=== PATIENT | female | born 1950 | race Caucasian/White ===

== ENCOUNTER 2019-12-11 08:56 | Outpatient (REF) | payer MEDICARE, OTHER, SELFPAY ==
--- NOTE | 2019-12-11 | MM_ITS ---
EXAMINATION: BONE DENSITOMETRY CLINICAL INDICATION: Osteoporosis. COMPARISON: Previous BD dated 12/06/2017 and baseline BD dated 05/29/2007. TECHNIQUE: Using a Exosect DXA System (software version: 13.1) manufactured by [employer], dual-energy x-ray absorptiometry was performed of the lumbar spine and left hip. The images are of good technical quality. Summary results are attached. FINDINGS: AP SPINE L1-L4: Current: BMD 0.948 g/cm2, Z-score 0.3, T-score -1.9, osteopenia, 3.7% decrease from previous, 2.3% decrease from baseline (<5% change is not significant). Prior: BMD 0.984 g/cm2. Baseline: BMD 0.970 g/cm2. LEFT FEMUR, NECK: Current: BMD 0.683 g/cm2, Z-score -0.5, T-score -2.6, osteoporosis. Prior: BMD 0.674 g/cm2. Baseline: BMD 0.724 g/cm2. LEFT FEMUR, TOTAL: Current: BMD 0.728 g/cm2, Z-score -0.4, T-score -2.2, osteopenia, 2.0% decrease from previous, 9.9% decrease from baseline (<5% change is not significant). Prior: BMD 0.743 g/cm2. Baseline: BMD 0.808 g/cm2. IDENTIFIED RISK FACTORS: Early menopause, history of fracture (adult), secondary osteoporosis. HISTORY OF FRACTURE: Femur. No insufficiency fracture reported. MEDICATIONS: Calcium, vitamin D. IMPRESSION: 1. DIAGNOSIS: Osteoporosis based on the lowest T-score value of -2.6 in the femoral neck applying World Health Organization criteria. 2. 10-YEAR FRACTURE RISK PREDICTION, FRAX: Major osteoporotic fracture (clinical spine, forearm, hip or shoulder) 19.7%. Hip fracture 5.4%. 3. Treatment Recommendations: NOF guidelines recommend consideration for treatment in postmenopausal women and men age 50 and older presenting with the following: -A hip or vertebral (clinical or morphometric) fracture. -T-score less than or equal to -2.5 at the femoral neck or spine after appropriate evaluation to exclude secondary causes. -Low bone mass at the hip or spine and a 10-year fracture probability by FRAX of greater than or equal to 3% for hip fracture or greater than or equal to 20% for major osteoporotic fracture based on the [place] adapted WHO algorithm. 4. Other Recommendations: All treatment decisions require clinical judgment and consideration of individual patient factors, including patient preferences, comorbidities, previous drug use, risk factors not captured in the FRAX model (e.g. frailty, falls, vitamin D deficiency, increased bone turnover, interval significant decline in bone density) and possible under or overestimation of fracture risk by FRAX. Additional medical evaluation for secondary cause of low bone mineral density may be appropriate. FUTURE SCAN RECOMMENDATION: People with diagnosed cases of osteoporosis or at high risk for fracture should have regular bone mineral density tests. For patients eligible for Medicare, routine testing is allowed once every 2 years. The testing frequency can be increased to one year for patients who have rapidly progressing disease, those who are receiving or discontinuing medical therapy to restore bone mass, or have additional risk factors.
== END 2019-12-11 08:57 | disposition home or self-care (01) ==
LOC: HO.MAMMO 08:56
PROVIDERS: PCP Internal Medicine; Visit Provider Obstetrics & Gynecology
DX: M81.0 Age-related osteoporosis without current pathological fracture (principal); Z78.0 Asymptomatic menopausal state
CPT/HCPCS: 77080

== ENCOUNTER 2020-04-26 11:40 | Outpatient (REF) | payer MEDICARE, OTHER, SELFPAY ==
--- NOTE | ~2020-04-26 | MM_ITS ---
EXAMINATION: MM SCREENING DIGITAL BREAST TOMOSYNTHESIS, BILATERAL CLINICAL INFORMATION: Screening. Asymptomatic. The lifetime risk of breast cancer based on the Tyrer-Cuzick Model is 5%. COMPARISON: Mammography: 08/20/2019, 02/11/2018, 12/25/2016 TECHNIQUE: Digital breast tomosynthesis is performed in both the craniocaudal and mediolateral oblique views along with computer-aided detection (CAD). Synthesized 2D images are generated from the tomosynthesis. FINDINGS: There are scattered areas of fibroglandular density (ACR BI-RADS breast composition Category b). There are no significant masses, abnormal calcifications, or other abnormalities. There is some fine vascular calcifications posterior upper outer left breast. No significant changes. Skin contours are smooth. MM/MM tomosynthesis screening BI IMPRESSION: No mammographic evidence of malignancy. ASSESSMENT: BI-RADS 2: Benign RECOMMENDATION: Routine annual mammography screening. This patient's information was entered into a reminder system with a target due date for their next mammogram.
== END 2020-04-26 11:41 | disposition home or self-care (01) ==
LOC: HO.MAMMO 11:40
PROVIDERS: Visit Provider Internal Medicine
DX: Z12.31 Encounter for screening mammogram for malignant neoplasm of breast (principal)
CPT/HCPCS: 77063; 77067

== ENCOUNTER 2020-06-17 09:37 | Outpatient (REF) | payer MEDICARE, OTHER, SELFPAY ==
[2020-06-17 09:58] LABS: COVID-19 Test Negative (Negative); IDNOW Serial# 55D5AD1C
== END 2020-06-17 09:38 | disposition home or self-care (01) ==
LOC: HO.LAB 09:37
PROVIDERS: Visit Provider Internal Medicine
DX: Z20.822 Contact with and (suspected) exposure to COVID-19 (principal)
CPT/HCPCS: 36415; 87635; C9803

== ENCOUNTER 2020-09-21 09:50 | Outpatient (REF) | payer MEDICARE, OTHER, SELFPAY ==
[2020-09-21 10:38] LABS: MANUAL DIFF FLAG NO
[2020-09-21 10:41] LABS: Basophils Percent Auto 0.5 % (0-2); Eosinophils Absolute Auto 0.1 X10*3/uL (0.0-0.4); Eosinophils Percent Auto 1.2 % (0-4); Hematocrit 41.5 % (37-47); Hemoglobin 13.2 g/dl (12.0-16.0); Imm Gran Abs Auto 0.02 X10*3/uL (0.00-0.03); Imm Gran Pct Auto 0.3 % (0.0-0.4); Lymphocytes Percent Auto 16.6 % (20-40); Mean Corpuscular HGB Conc 31.8 g/dl (31.0-35.0); Mean Corpuscular Hemoglobin 30.6 pg (27.0-33.0); Mean Corpuscular Volume 96.1 fL (80-98); Mean Platelet Volume 9.7 fL (9.4-12.3); Monocytes Absolute Auto 0.4 X10*3/uL (0.1-1.2); Monocytes Percent Auto 6.1 % (2-11); Neutrophils Absolute Auto 4.4 X10*3/uL (2.0-8.3); Neutrophils Percent Auto 75.3 % (45-73); Platelet Count 253 X10*3/uL (160-400); Red Blood Count 4.32 X10*6/uL (4.20-5.50); Red Cell Distribution Width 13.2 % (11.0-16.0); White Blood Count 5.9 X10*3/uL (4.8-10.8)
[2020-09-21 10:58] LABS: Glucose Urine UA NEG (NEG); Leukocyte Esterase Urine 1+ (NEG); Nitrite Urine NEG (NEG); Specific Gravity - Urine 1.025 (1.005-1.025); Urine Blood TRACE (NEG); Urine Ketones NEG (NEG); Urine Protein NEG (NEG-TRACE)
[2020-09-21 11:01] LABS: Appearance Urine CLEAR; Color Urine YELLOW
[2020-09-21 11:04] LABS: Alanine Aminotransferase 13 U/L (0-31); Albumin Level 4.3 g/dL (3.5-5.0); Alkaline Phosphatase 50 U/L (39-117); Anion Gap 12 (12-20); Aspartate Amino Transferase 21 U/L (5-31); Bilirubin Total 0.9 mg/dL (0.0-1.0); Blood Urea Nitrogen 14 mg/dL (9-16); Calcium 9.3 mg/dL (8.4-10.2); Carbon Dioxide 29 mmol/L (22-29); Chloride 105 mmol/L (96-108); Estimated Glomerular Filt Rate > 60; Glucose Random 90 mg/dL (60-115); Sodium 142 mmol/L (135-145); Total Protein 6.3 g/dL (6.5-8.0)
[2020-09-21 11:18] LABS: Bacteria Urine TRACE /LPF; Mucus Urine 1+ /LPF; Squamous Epithelial Cell Urine 1+ /LPF
[2020-09-21 11:24] LABS: Thyroid Stimulating Hormone 2.03 uIU/mL (0.32-4.0)
== END 2020-09-21 09:51 | disposition home or self-care (01) ==
LOC: HO.LAB 09:50
PROVIDERS: PCP Internal Medicine; Visit Provider Internal Medicine
DX: R53.81 Other malaise (principal); R53.83 Other fatigue; R35.1 Nocturia
CPT/HCPCS: 36415; 80053; 81001; 81003; 84443; 85025

== ENCOUNTER 2020-11-30 15:41 | Outpatient (REF) | payer MEDICARE, OTHER, SELFPAY | END 2020-11-30 15:42 | disposition home or self-care (01) | LOC: HO.LAB 15:41 | PROVIDERS: Visit Provider Internal Medicine | DX: Z20.822 Contact with and (suspected) exposure to COVID-19 (principal) | CPT/HCPCS: C9803; U0003; U0005 ==

== ENCOUNTER 2021-01-13 09:44 | Outpatient (REF) | payer MEDICARE, OTHER, SELFPAY ==
[2021-01-13 10:28] LABS: COVID-19 Test Negative (Negative)
== END 2021-01-13 09:45 | disposition home or self-care (01) ==
LOC: HO.LAB 09:44
PROVIDERS: PCP Internal Medicine; Visit Provider Internal Medicine
DX: Z20.822 Contact with and (suspected) exposure to COVID-19 (principal)
CPT/HCPCS: 36415; 87635; C9803

== ENCOUNTER 2021-01-17 09:26 | Outpatient (REF) | payer MEDICARE, OTHER, SELFPAY | END 2021-01-17 09:27 | disposition home or self-care (01) | LOC: HO.LAB 09:26 | PROVIDERS: PCP Internal Medicine; Visit Provider Internal Medicine | DX: Z20.822 Contact with and (suspected) exposure to COVID-19 (principal) | CPT/HCPCS: C9803; U0003; U0005 ==

== ENCOUNTER 2021-06-14 09:47 | Outpatient (REF) | payer MEDICARE, OTHER, SELFPAY ==
--- NOTE | ~2021-06-14 | MM_ITS ---
EXAMINATION: MM SCREENING DIGITAL BREAST TOMOSYNTHESIS, BILATERAL CLINICAL INFORMATION: Screening. Asymptomatic. The lifetime risk of breast cancer based on the Tyrer-Cuzick Model is 5%. COMPARISON: Mammography: 04/26/2020, 04/21/2019, 02/11/2018 TECHNIQUE: Digital breast tomosynthesis is performed in both the craniocaudal and mediolateral oblique views along with computer-aided detection (CAD). Synthesized 2D images are generated from the tomosynthesis. FINDINGS: There are scattered areas of fibroglandular density (ACR BI-RADS breast composition Category b). There are no significant masses, abnormal calcifications, or other abnormalities. Parenchymal pattern is similar to prior exams. No significant changes. MM/MM tomosynthesis screening BI IMPRESSION: No mammographic evidence of malignancy. ASSESSMENT: BI-RADS 1: Negative RECOMMENDATION: Routine annual mammography screening. This patient's information was entered into a reminder system with a target due date for their next mammogram.
== END 2021-06-14 09:48 | disposition home or self-care (01) ==
LOC: HO.MAMMO 09:47
PROVIDERS: PCP Internal Medicine; Visit Provider Internal Medicine
DX: Z12.31 Encounter for screening mammogram for malignant neoplasm of breast (principal)
CPT/HCPCS: 77063; 77067

== ENCOUNTER 2022-01-10 09:23 | Outpatient (REF) | payer MEDICARE, OTHER, SELFPAY ==
--- NOTE | ~2022-01-10 | MM_ITS ---
EXAMINATION: BONE DENSITOMETRY CLINICAL INDICATION: Osteoporosis. COMPARISON: Previous BD dated 12/11/2019 and baseline BD dated 05/29/2007. TECHNIQUE: Using a [employer] DXA System (software version: 13.1) manufactured by [employer], dual-energy x-ray absorptiometry was performed of the lumbar spine and left hip. The images are of good technical quality. Summary results are attached. FINDINGS: AP SPINE L1-L4: Current: BMD 0.903 g/cm2, Z-score 0.0, T-score -2.3, osteopenia, 4.7% decrease from previous, 6.9% decrease from baseline (<5% change is not significant). Prior: BMD 0.948 g/cm2. Baseline: BMD 0.970 g/cm2. LEFT FEMUR, NECK: Current: BMD 0.657 g/cm2, Z-score -0.6, T-score -2.7, osteoporosis. Prior: BMD 0.683 g/cm2. Baseline: BMD 0.724 g/cm2. LEFT FEMUR, TOTAL: Current: BMD 0.697 g/cm2, Z-score -0.5, T-score -2.5, osteoporosis, 4.3% decrease from previous, 13.7% decrease from baseline (<5% change is not significant). Prior: BMD 0.728 g/cm2. Baseline: BMD 0.808 g/cm2. IDENTIFIED RISK FACTORS: Early menopause, history of fracture (adult), secondary osteoporosis. HISTORY OF FRACTURE: Femur. MEDICATIONS: Calcium, vitamin D. MM/XR DEXA axial skeleton IMPRESSION: 1. DIAGNOSIS: Severe osteoporosis based on the lowest T-score value of -2.7 in the femoral neck and history of fracture of femur applying World Health Organization criteria. 2. 10-YEAR FRACTURE RISK PREDICTION, FRAX: According to the guidelines, FRAX calculation should only be performed on patients in the osteopenia bone density category. Therefore, FRAX was not performed on this patient. 3. Treatment Recommendations: NOF guidelines recommend consideration for treatment in postmenopausal women and men age 50 and older presenting with the following: -A hip or vertebral (clinical or morphometric) fracture. -T-score less than or equal to -2.5 at the femoral neck or spine after appropriate evaluation to exclude secondary causes. -Low bone mass at the hip or spine and a 10-year fracture probability by FRAX of greater than or equal to 3% for hip fracture or greater than or equal to 20% for major osteoporotic fracture based on the [place] adapted WHO algorithm. 4. Other Recommendations: All treatment decisions require clinical judgment and consideration of individual patient factors, including patient preferences, comorbidities, previous drug use, risk factors not captured in the FRAX model (e.g. frailty, falls, vitamin D deficiency, increased bone turnover, interval significant decline in bone density) and possible under or overestimation of fracture risk by FRAX. Additional medical evaluation for secondary cause of low bone mineral density may be appropriate. FUTURE SCAN RECOMMENDATION: People with diagnosed cases of osteoporosis or at high risk for fracture should have regular bone mineral density tests. For patients eligible for Medicare, routine testing is allowed once every 2 years. The testing frequency can be increased to one year for patients who have rapidly progressing disease, those who are receiving or discontinuing medical therapy to restore bone mass, or have additional risk factors.
== END 2022-01-10 09:24 | disposition home or self-care (01) ==
LOC: HO.MAMMO 09:23
PROVIDERS: Visit Provider Internal Medicine Endocrinology, Diabetes & Metabolism
DX: Z13.820 Encounter for screening for osteoporosis (principal); M81.0 Age-related osteoporosis without current pathological fracture; Z78.0 Asymptomatic menopausal state
CPT/HCPCS: 77080

== ENCOUNTER 2022-02-03 08:20 | Outpatient (REF) | payer MEDICARE, OTHER, SELFPAY ==
[2022-02-03 12:10] LABS: Albumin Level 4.4 g/dL (3.5-5.0); Anion Gap 15 (12-20); Blood Urea Nitrogen 12 mg/dL (9-16); Calcium 9.8 mg/dL (8.4-10.2); Carbon Dioxide 28 mmol/L (22-29); Chloride 103 mmol/L (96-108); Estimated Glomerular Filt Rate > 60; Glucose Random 120 mg/dL (60-115); Potassium 4.5 mmol/L (3.3-5.1); Vitamin D 25-OH Total 49.2 ng/mL (>30)
[2022-02-03 12:26] LABS: Sodium 141 mmol/L (135-145)
[2022-02-05 15:39] LABS: Calcium (PTHI) 9.7 mg/dL (8.6-10.4); PTHI 53 pg/mL (16-77)
[2022-02-10 21:49] LABS: N-Telopeptide 57 (see note); NTXCreaRU 119 mg/dL (20-275)
== END 2022-02-03 08:21 | disposition home or self-care (01) ==
LOC: HO.10HDL 08:20
PROVIDERS: Visit Provider Internal Medicine Endocrinology, Diabetes & Metabolism
DX: M81.0 Age-related osteoporosis without current pathological fracture (principal)
CPT/HCPCS: 36415; 80048; 82040; 82306; 82523; 83970

== ENCOUNTER 2022-04-05 08:19 | Outpatient (REF) | payer MEDICARE, OTHER, SELFPAY ==
[2022-04-05 10:38] LABS: MANUAL DIFF FLAG NO
[2022-04-05 10:43] LABS: Basophils Absolute Auto 0.1 X10*3/uL (0.0-0.2); Basophils Percent Auto 1.7 % (0-2); Eosinophils Absolute Auto 0.2 X10*3/uL (0.0-0.4); Eosinophils Percent Auto 3.6 % (0-4); Hematocrit 42.6 % (37.0-47.0); Hemoglobin 13.7 g/dl (12.0-16.0); Lymphocytes Absolute Auto 1.3 X10*3/uL (1.2-4.9); Lymphocytes Percent Auto 27.9 % (20-40); Mean Corpuscular HGB Conc 32.2 g/dl (31.0-35.0); Mean Corpuscular Hemoglobin 30.3 pg (27.0-33.0); Mean Corpuscular Volume 94.2 fL (80.0-98.0); Mean Platelet Volume 10.2 fL (9.4-12.3); Monocytes Absolute Auto 0.4 X10*3/uL (0.1-1.2); Monocytes Percent Auto 7.6 % (2-11); Neutrophils Absolute Auto 2.8 x10*3/uL (2.0-8.3); Neutrophils Percent Auto 59.2 % (45-73); Platelet Count 270 X10*3/uL (160-400); Red Blood Count 4.52 X10*6/uL (4.20-5.50); Red Cell Distribution Width 13.1 % (11.0-16.0); White Blood Count 4.7 X10*3/uL (4.8-10.8)
[2022-04-05 11:23] LABS: Alanine Aminotransferase 13 U/L (0-31); Albumin Level 4.2 g/dL (3.5-5.0); Alkaline Phosphatase 65 U/L (39-117); Anion Gap 10 (12-20); Aspartate Amino Transferase 21 U/L (5-31); Bilirubin Total 0.6 mg/dL (0.0-1.0); Blood Urea Nitrogen 14 mg/dL (9-16); Calcium 9.2 mg/dL (8.4-10.2); Carbon Dioxide 31 mmol/L (22-29); Chloride 106 mmol/L (96-108); Cholesterol 224 mg/dL; Estimated Glomerular Filt Rate > 60; Glucose Fasting 78 mg/dL (60-99); HDL Cholesterol 76 mg/dL; LDL Cholesterol Calculated 140 mg/dl; Potassium 4.6 mmol/L (3.3-5.1); Sodium 142 mmol/L (135-145); Triglycerides 43 mg/dL
[2022-04-05 11:26] LABS: TSH reflex Free T4 1.64 uIU/mL (0.32-4.0)
== END 2022-04-05 08:20 | disposition home or self-care (01) ==
LOC: HO.10HDL 08:19
PROVIDERS: Absent Provider Internal Medicine Endocrinology, Diabetes & Metabolism; Visit Provider Internal Medicine
DX: E78.00 Pure hypercholesterolemia, unspecified (principal); M81.0 Age-related osteoporosis without current pathological fracture
CPT/HCPCS: 36415; 80053; 80061; 84443; 85025

== ENCOUNTER 2022-07-10 09:17 | Outpatient (REF) | payer MEDICARE, OTHER, SELFPAY ==
--- NOTE | ~2022-07-10 | MM_ITS ---
EXAMINATION: MM SCREENING DIGITAL BREAST TOMOSYNTHESIS, BILATERAL CLINICAL INFORMATION: Screening. Asymptomatic. The lifetime risk of breast cancer based on the Tyrer-Cuzick Model is 6%. COMPARISON: Mammography: 06/14/2021, 04/26/2020, 04/21/2019 TECHNIQUE: Digital breast tomosynthesis is performed in both the craniocaudal and mediolateral oblique views along with computer-aided detection (CAD). Synthesized 2D images are generated from the tomosynthesis. FINDINGS: There are scattered areas of fibroglandular density (ACR BI-RADS breast composition Category b). There are no significant masses, abnormal calcifications, or other abnormalities. Parenchymal pattern is similar to prior studies. There is no developing density or architectural abnormality. The axilla and skin contours are unremarkable. No significant changes. MM/MM tomosynthesis screening BI IMPRESSION: No mammographic evidence of malignancy. ASSESSMENT: BI-RADS 1: Negative RECOMMENDATION: Routine annual mammography screening. This patient's information was entered into a reminder system with a target due date for their next mammogram.
== END 2022-07-10 09:18 | disposition home or self-care (01) ==
LOC: HO.MAMMO 09:17
PROVIDERS: PCP Internal Medicine; Visit Provider Internal Medicine
DX: Z12.31 Encounter for screening mammogram for malignant neoplasm of breast (principal)
CPT/HCPCS: 77063; 77067

== ENCOUNTER 2022-12-20 06:33 | Day surgery (SDC) | payer MEDICARE, OTHER, SELFPAY ==
--- NOTE | 2022-12-18 14:56 | HO.ANESPROP2 ---
Documented by User: Asia Page NP 12/18/22 14:56 HPI - Anesthesia Eval Consult details Narrative: 72yo F for Colonoscopy PMFSH Past Medical History Medical History History of femur fracture Insomnia Surgical History Surgical History History of colonoscopy Social History Social History Patient Tobacco Use Status: Never used Tobacco Use of substances other than those prescribed or required for medical reasons: No Are you DNR?: No Advance Directives: No Advance Directives Information Provided: Yes Patient : No Meds Allergies Allergy/AdvReac Type Severity Reaction Status Date / Time No Known Allergies Allergy Verified 12/19/22 06:17 [No Known Allergies*] Home Medications Medication Instructions Recorded Confirmed Last Taken Type trazodone 100 mg tablet 100 mg PO BEDTIME 12/18/22 12/18/22 Unknown History Exam Exam Date and Time: December 18, [id number] Assessment and Plan Assessment Anesthesia Assessment: Chart Reviewed Documented by User: Shanell Suarez MD 12/20/22 07:34 PMFSH Past Medical History Medical History History of femur fracture Insomnia Family History Family history of problems with anesthesia: No Surgical History Surgical History History of colonoscopy History of Problems with Anesthesia: No Social History Social History Patient Tobacco Use Status: Never used Tobacco Use of substances other than those prescribed or required for medical reasons: No Are you DNR?: No Advance Directives: No Advance Directives Information Provided: Yes Patient : No Meds Allergies Allergy/AdvReac Type Severity Reaction Status Date / Time No Known Allergies Allergy Verified 12/19/22 06:17 [No Known Allergies*] Home Medications Medication Instructions Recorded Confirmed Last Taken Type trazodone 100 mg tablet 100 mg PO BEDTIME 12/18/22 12/18/22 Unknown History Exam Height,Weight and Vital Signs: Height 5 ft 2 in Weight 46.266 kg Vital Signs Temp Pulse Resp BP Pulse Ox O2 Del Method 12/20/22 06:53 96.4 F L 92 18 112/69 99 Room Air Airway Mallampati Class: III (Small mouth opening) TM Dist: >3cm Neck ROM: Full Loose/Missing/Broken Teeth: No (Denies broken, loose, missing teeth) Heart: RRR Lungs: CTAB Assessment and Plan Assessment Anesthesia Assessment: Anesthesia Plan Discussed Final Anesthetic Review Family History of Problems with Anesthesia: No History of Problems with Anesthesia: No NPO: Yes Final Preanesthetic Review: No Changes in Pt Med Stat, Meds/Allgs Chart Reviewed, Consent Obtained/Reviewed and Anes Risks/Benef Reviewed Patient Risk: Low Procedure Risk: Low Assessment/Block/Sedation in SS: Assess/Block/Sedation-SS Anesthetic Plan Anesthetic Plan: MAC: Disposition: Standard PACU
[2022-12-20 06:43] VITALS: BMI 18.7
[2022-12-20 06:47] VITALS: BMI 18.7
[2022-12-20 06:53] VITALS: BP 112/69; PULSE 92; RESP 18; TEMP 35.8; O2SAT 99
[2022-12-20] MEDS: Lactated Ringers 1,000 ML 100 ML IVCONT (07:03)
--- NOTE | 2022-12-20 08:31 | P.BOP_ITS ---
Brief Operative Note Date of Service: 12/20/22 Pre-op diagnosis: Screening Post-op diagnosis: other (Diverticulosis) Procedure: Colonoscopy to the cecum and TI Surgeon: Shaq Morrison MD Anesthesia: MAC Was an Human Resources Office Assistant used for this Procedure?: No Estimated blood loss (mL): 0 Pathology: none sent Condition: stable Disposition: PACU
[2022-12-20 08:34] VITALS: BP 103/52; PULSE 75; RESP 14; TEMP 36.5; O2SAT 99
--- NOTE | 2022-12-20 08:41 | OP_ITS ---
DATE OF SERVICE: 12/20/2022 SURGEON: Shaq Morrison MD INDICATIONS: The patient presents for evaluation of colorectal cancer screening and family history of colon cancer. Full consent was obtained from her for this, including risks of bleeding and perforation. PREOPERATIVE DIAGNOSIS: Colorectal cancer screening. POSTOPERATIVE DIAGNOSIS: PROCEDURE PERFORMED: Colonoscopy to the cecum and terminal ileum. ESTIMATED BLOOD LOSS: COMPLICATIONS: ANESTHESIA: Monitored anesthesia care. ASSISTANTS: SPECIMENS: POSTOPERATIVE DIAGNOSES: Colorectal cancer screening, diverticulosis and internal hemorrhoids. DESCRIPTION OF PROCEDURE: The patient was placed in left decubitus position. The digital rectal exam revealed no abnormalities. The Olympus video pediatric colonoscope was entered into the rectum and advanced easily to the cecum. Once in the cecum, I did identify normal-appearing cecal pouch with appendiceal orifice and a normal-appearing ileocecal valve. The terminal ileum was cannulated and appeared normal. The scope was withdrawn back in the colon. The entire cecum and ileocecal valve appeared normal. The scope was slowly withdrawn assessing all mucosal surfaces carefully. Preparation was excellent. I did not visualize any sign of polyps, colitis, nor angiodysplasia. There was a moderate amount of sigmoid diverticulosis. In the rectum, scope was retroflexed visualizing internal hemorrhoids, but no other pathology. The rectal mucosa appeared normal. The scope was straightened and withdrawn from the patient. She tolerated the procedure well and was returned to recovery area in stable condition. IMPRESSION: 1. Diverticulosis. 2. Internal hemorrhoids. PLAN: Given that this has been her 3rd negative colonoscopy and she is 72 years old, and her family history is only that of her mother having a colon cancer in her 80s, I do not think she will need any further screening colonoscopies. She will see me again on a p.r.n. basis. MD VICTORIANO Pinon/PAIGE / [phone]
[2022-12-20 08:49] VITALS: BP 115/46; PULSE 68; RESP 16; TEMP 36.6; O2SAT 99
== END 2022-12-20 09:22 | disposition home or self-care (01) ==
PROVIDERS: PCP Internal Medicine; Visit Provider Internal Medicine
PROC: 0DJD8ZZ Inspection of Lower Intestinal Tract, Via Natural or Artificial Opening Endoscopic (ICD-10-PCS; CPT 45378; principal; 2022-12-20 07:30)
DX: Z12.11 Encounter for screening for malignant neoplasm of colon (principal); Z83.710 Family history of adenomatous and serrated polyps; Z80.0 Family history of malignant neoplasm of digestive organs; K57.30 Diverticulosis of large intestine without perforation or abscess without bleeding; K64.8 Other hemorrhoids; Z79.899 Other long term (current) drug therapy; Z98.890 Other specified postprocedural states
CPT/HCPCS: G0105

== ENCOUNTER 2023-07-16 09:06 | Outpatient (REF) | payer MEDICARE, OTHER, SELFPAY | END 2023-07-16 09:07 | disposition home or self-care (01) | LOC: HO.MAMMO 09:06 | PROVIDERS: PCP Internal Medicine; Visit Provider Internal Medicine | DX: Z12.31 Encounter for screening mammogram for malignant neoplasm of breast (principal) | CPT/HCPCS: 77063; 77067 ==

== ENCOUNTER → 2023-07-16 09:15 | Outpatient (BNV) | payer MEDICARE, OTHER, SELFPAY | PROVIDERS: PCP Internal Medicine; Visit Provider Radiology Diagnostic Radiology | DX: Z12.31 Encounter for screening mammogram for malignant neoplasm of breast (principal) | CPT/HCPCS: 77063; 77067 ==

== ENCOUNTER 2023-09-11 08:05 | Outpatient (REF) | payer MEDICARE, OTHER, SELFPAY ==
[2023-09-11 08:23] LABS: MANUAL DIFF FLAG NO
[2023-09-11 08:54] LABS: Basophils Absolute Auto 0.1 X10*3/uL (0.0-0.2); Basophils Percent Auto 1.2 % (0-2); Eosinophils Absolute Auto 0.1 X10*3/uL (0.0-0.4); Eosinophils Percent Auto 2.3 % (0-4); Hematocrit 41.7 % (37.0-47.0); Hemoglobin 13.7 g/dl (12.0-16.0); Imm Gran Abs Auto 0.01 X10*3/uL (0.00-0.03); Imm Gran Pct Auto 0.2 % (0.0-0.4); Lymphocytes Absolute Auto 1.4 X10*3/uL (1.2-4.9); Lymphocytes Percent Auto 28.9 % (20-40); Mean Corpuscular HGB Conc 32.9 g/dl (31.0-35.0); Mean Corpuscular Hemoglobin 30.6 pg (27.0-33.0); Mean Corpuscular Volume 93.3 fL (80.0-98.0); Mean Platelet Volume 9.8 fL (9.4-12.3); Monocytes Absolute Auto 0.3 X10*3/uL (0.1-1.2); Monocytes Percent Auto 6.6 % (2-11); Neutrophils Percent Auto 60.8 % (45-73); Platelet Count 238 X10*3/uL (160-400); Red Blood Count 4.47 X10*6/uL (4.20-5.50); Red Cell Distribution Width 13.3 % (11.0-16.0); White Blood Count 4.9 X10*3/uL (4.8-10.8)
[2023-09-11 09:51] LABS: Alanine Aminotransferase 13 U/L (0-31); Albumin Level 4.2 g/dL (3.5-5.0); Alkaline Phosphatase 58 U/L (39-117); Anion Gap 10 (12-20); Aspartate Amino Transferase 22 U/L (5-31); Bilirubin Total 0.5 mg/dL (0.0-1.0); Blood Urea Nitrogen 12 mg/dL (9-16); Calcium 9.3 mg/dL (8.4-10.2); Carbon Dioxide 30 mmol/L (22-29); Chloride 107 mmol/L (96-108); Cholesterol 229 mg/dL (<200); Estimated Glomerular Filt Rate > 60; Glucose Random 93 mg/dL (60-115); HDL Cholesterol 76 mg/dL (>40); LDL Cholesterol Calculated 142 mg/dL (<100); Potassium 4.1 mmol/L (3.3-5.1); Sodium 143 mmol/L (135-145); Total Protein 6.3 g/dL (6.5-8.0); Triglycerides 57 mg/dL (<150)
[2023-09-11 10:08] LABS: TSH reflex Free T4 1.12 uIU/mL (0.32-4.0); Vitamin D 25-OH Total 34.7 ng/mL (>30)
== END 2023-09-11 08:06 | disposition home or self-care (01) ==
LOC: HO.LAB 08:05
PROVIDERS: PCP Internal Medicine; Visit Provider Internal Medicine
DX: Z00.00 Encounter for general adult medical examination without abnormal findings (principal); M81.0 Age-related osteoporosis without current pathological fracture; E78.00 Pure hypercholesterolemia, unspecified
CPT/HCPCS: 36415; 80053; 80061; 82306; 84443; 85025

== ENCOUNTER 2024-01-16 13:42 | Outpatient (REF) | payer MEDICARE, OTHER, SELFPAY ==
--- NOTE | ~2024-01-16 | MM_ITS ---
EXAMINATION: BONE DENSITOMETRY CLINICAL INDICATION: Age-related osteoporosis. COMPARISON: Previous BD dated 01/10/2022 and baseline BD dated 05/29/2007. TECHNIQUE: Using a [employer] DXA System (software version: 13.1) manufactured by [employer], dual-energy x-ray absorptiometry was performed of the lumbar spine and left hip. The images are of good technical quality. Summary results are attached. FINDINGS: LEFT FEMUR, NECK: Current: BMD 0.691 g/cm2, Z-score -0.3, T-score -2.5, osteoporosis. Prior: BMD 0.657 g/cm2. Baseline: BMD 0.724 g/cm2. LEFT FEMUR, TOTAL: Current: BMD 0.704 g/cm2, Z-score -0.4, T-score -2.4, osteopenia, 1.0% increase from previous, 12.9% decrease from baseline (<5% change is not significant). Prior: BMD 0.697 g/cm2. Baseline: BMD 0.808 g/cm2. AP SPINE L1-L4: Current: BMD 0.901 g/cm2, Z-score 0.0, T-score -2.3, osteopenia, 0.2% decrease from previous, 7.1% decrease from baseline (<5% change is not significant). Prior: BMD 0.903 g/cm2. Baseline: BMD 0.970 g/cm2. IDENTIFIED RISK FACTORS: Early menopause, secondary osteoporosis, history of fracture (adult). HISTORY OF FRACTURE: Femur. MEDICATIONS: Calcium supplements or multivitamin, vitamin D. MM/XR DEXA axial skeleton IMPRESSION: 1. DIAGNOSIS: Osteoporosis based on the lowest T-score value of -2.5 in the femoral neck applying World Health Organization criteria. 2. 10-YEAR FRACTURE RISK PREDICTION, FRAX: According to the guidelines, FRAX calculation should only be performed on patients in the osteopenia bone density category. Therefore, FRAX was not performed on this patient. 3. Treatment Recommendations: NOF guidelines recommend consideration for treatment in postmenopausal women and men age 50 and older presenting with the following: -A hip or vertebral (clinical or morphometric) fracture. -T-score less than or equal to -2.5 at the femoral neck or spine after appropriate evaluation to exclude secondary causes. -Low bone mass at the hip or spine and a 10-year fracture probability by FRAX of greater than or equal to 3% for hip fracture or greater than or equal to 20% for major osteoporotic fracture based on the [place] adapted WHO algorithm. 4. Other Recommendations: All treatment decisions require clinical judgment and consideration of individual patient factors, including patient preferences, comorbidities, previous drug use, risk factors not captured in the FRAX model (e.g. frailty, falls, vitamin D deficiency, increased bone turnover, interval significant decline in bone density) and possible under or overestimation of fracture risk by FRAX. Additional medical evaluation for secondary cause of low bone mineral density may be appropriate. FUTURE SCAN RECOMMENDATION: People with diagnosed cases of osteoporosis or at high risk for fracture should have regular bone mineral density tests. For patients eligible for Medicare, routine testing is allowed once every 2 years. The testing frequency can be increased to one year for patients who have rapidly progressing disease, those who are receiving or discontinuing medical therapy to restore bone mass, or have additional risk factors. Electronically signed by: Kimberli Machado MD 01/17/2024 01:40 PM LEXI ZIEGLER
== END 2024-01-16 13:43 | disposition home or self-care (01) ==
LOC: HO.MAMMO 13:42
PROVIDERS: PCP Internal Medicine; Visit Provider Internal Medicine
DX: M81.0 Age-related osteoporosis without current pathological fracture (principal)
CPT/HCPCS: 77080

== ENCOUNTER 2024-07-21 09:31 | Outpatient (REF) | payer MEDICARE, OTHER, SELFPAY ==
--- OUTSIDE RECORDS SUMMARY | 2024-07-21 09:50 | XMS_ITS | Patient Health Record ---
Author Organization [facility] Address [address] [place] [address] Care Team Providers Care Director Of Assessment Name Role Phone Kofi Blake MD Primary Care Provider Shaq Carl Unavailable [phone] Allergies No Known Allergies Reason For Referral No Information Medications Medication SIG (Take, Route, Fr equency, Duration) Notes Start Date End Date Status traZODone HCl 100 MG TAKE 1 TABLET (100 MG TOTAL) BY MOUTH NIGHTLY. AT BEDTIME. Oral for 30 Active Immunizations Vaccine Route Administration Date Status Comme nts Influenza Unknown 09/27/2022 Refused Social History Tobacco Use: Social History Observation Description Date Details (start date - stop date) Former Smoker NA - NA Tobacco Use/Smoking Question Answer Notes Patient is a former smoker How long has it been since you last smoked? > 10 years Alcohol Screen Question Answer Notes Did you have a drink contain ing alcohol in the past year? Yes How often did you have a dri nk containing alcohol in the past year? 4 or more times a week (4 points) How many drinks did you have on a typical day when you were drinking in the past year? 1 or 2 drinks (0 point) Points 4 Interpretation Positive Section Notes: Former smoker over 47 years ago; wine at dinner Former smoker over 47 years ago; wine at dinner Problems Problem Type SNOMED Code ICD Code Onset Dates Problem Status W/U Status Risk Notes Problem 356674908 Encounter for screening for malignant neoplasm of colon (Z12.11) Active confirmed Problem Diverticulosis o f large intestine without perforation or abscess without bleeding (K57.30) Active confirmed Problem 784023265 Family history o f colonic polyps (Z83.71) Active confirmed Problem 226491799 Preprocedural examination (Z01.818) Active confirmed Problem 689890572 Family history o f colon cancer (Z80.0) Active confirmed Problem 954602348 Screening for co alberto cancer (Z12.11) Active confirmed Plan Of Treatment Future Test Test Name Order Date COLONOSCOPY 06/19/2017 COLONOSCOPY 09/27/2022 Insurance Providers Payer Name Payer Address Payer Phone Subscriber Number Group Number Insured Name Patient Relationship to Insured Coverage Start Date Coverage End Date MEDICARE OF [place] [address] [place] [address] [id number] KARMEN GUSTAFSON Self - patient is the insured [facility] [address] [place] [address] [id number] KARMEN GUSTAFSON Self - patient is the insured Medical (General) History Medical History History ICD Code Denies NM,DM,CVA,Lung disease,renal dise ase Negative colonoscopy in 03/2007 and 8 Surgical History Surgery Date(Month/Year) Fractured femur surgery-- right
== END 2024-07-21 09:32 | disposition home or self-care (01) ==
LOC: HO.MAMMO 09:31
PROVIDERS: Visit Provider Internal Medicine
DX: Z12.31 Encounter for screening mammogram for malignant neoplasm of breast (principal)
CPT/HCPCS: 77063; 77067

== ENCOUNTER → 2024-07-21 09:45 | Outpatient (BNV) | payer MEDICARE, OTHER, SELFPAY | PROVIDERS: Visit Provider Internal Medicine | DX: Z12.31 Encounter for screening mammogram for malignant neoplasm of breast (principal) | CPT/HCPCS: 77063; 77067 ==

== ENCOUNTER 2024-08-19 08:05 | Outpatient (REF) | payer MEDICARE, OTHER, SELFPAY ==
--- OUTSIDE RECORDS SUMMARY | 2024-08-19 08:08 | XMS_ITS | Patient Health Record ---
Author Organization [facility] Address [address] [place] [address] Care Team Providers Care Power Originator Name Role Phone Kofi Blake MD Primary Care Provider Shaq Carl Unavailable [phone] Allergies No Known Allergies Reason For Referral [...] Problem Status W/U Status Risk Notes Problem 559565569 Encounter for screening for malignant neoplasm of colon (Z12.11) Active confirmed Problem Diverticulosis o f large intestine without perforation or abscess without bleeding (K57.30) Active confirmed Problem 452325933 Family history o f colonic polyps (Z83.71) Active confirmed Problem 970443934 Preprocedural examination (Z01.818) Active confirmed Problem 714695652 Family history o f colon cancer (Z80.0) Active confirmed Problem 469892394 Screening for co alberto cancer (Z12.11) Active confirmed Plan Of Treatment Future Test Test Name Order Date COLONOSCOPY 06/19/2017 COLONOSCOPY 09/27/2022 Insurance Providers Payer Name Payer Address Payer Phone Subscriber Number Group Number Insured Name Patient Relationship to Insured Coverage Start Date Coverage End Date MEDICARE OF [place] [address] [place] [address] [id number] KARMEN GUSTAFSON Self - patient is the insured [facility] [employer]MN[facility] [address] [place] [address] [id number] KARMEN GUSTAFSON Self - patient is the insured Medical (General) History Medical History History ICD Code Denies SD,DM,CVA,Lung disease,renal dise ase Negative colonoscopy in 03/2007 and 8 Surgical History Surgery Date(Month/Year) Fractured femur surgery-- right
[2024-08-19 08:28] LABS: MANUAL DIFF FLAG NO
[2024-08-19 08:41] LABS: Basophils Absolute Auto 0.1 X10*3/uL (0.0-0.2); Basophils Percent Auto 1.3 % (0-2); Eosinophils Absolute Auto 0.1 X10*3/uL (0.0-0.4); Eosinophils Percent Auto 2.9 % (0-4); Hemoglobin 13.5 g/dl (12.0-16.0); Imm Gran Abs Auto 0.01 X10*3/uL (0.00-0.03); Imm Gran Pct Auto 0.2 % (0.0-0.4); Lymphocytes Absolute Auto 1.2 X10*3/uL (1.2-4.9); Mean Corpuscular HGB Conc 32.1 g/dl (31.0-35.0); Mean Corpuscular Hemoglobin 30.1 pg (27.0-33.0); Mean Corpuscular Volume 93.5 fL (80.0-98.0); Mean Platelet Volume 9.5 fL (9.4-12.3); Monocytes Absolute Auto 0.3 X10*3/uL (0.1-1.2); Monocytes Percent Auto 7.2 % (2-11); Neutrophils Absolute Auto 2.8 x10*3/uL (2.0-8.3); Neutrophils Percent Auto 62.4 % (45-73); Platelet Count 238 X10*3/uL (160-400); Red Blood Count 4.49 X10*6/uL (4.20-5.50); Red Cell Distribution Width 13.2 % (11.0-16.0); White Blood Count 4.5 X10*3/uL (4.8-10.8)
[2024-08-19 09:14] LABS: Alanine Aminotransferase 18 U/L (0-31); Albumin Level 4.2 g/dL (3.5-5.0); Alkaline Phosphatase 61 U/L (39-117); Anion Gap 9 (12-20); Aspartate Amino Transferase 30 U/L (5-31); Bilirubin Total 0.6 mg/dL (0.0-1.0); Blood Urea Nitrogen 14 mg/dL (9-16); Calcium 9.2 mg/dL (8.4-10.2); Carbon Dioxide 29 mmol/L (22-29); Chloride 108 mmol/L (96-108); Cholesterol 219 mg/dL (<200); Estimated Glomerular Filt Rate > 60; Glucose Random 87 mg/dL (60-115); HDL Cholesterol 76 mg/dL (>40); LDL Cholesterol Calculated 133 mg/dL (<100); Potassium 4.5 mmol/L (3.3-5.1); Sodium 141 mmol/L (135-145); Total Protein 6.3 g/dL (6.5-8.0); Triglycerides 52 mg/dL (<150)
[2024-08-19 09:30] LABS: Vitamin D 25-OH Total 32.7 ng/mL (>30)
== END 2024-08-19 08:06 | disposition home or self-care (01) ==
LOC: HO.LAB 08:05
PROVIDERS: PCP Internal Medicine; Visit Provider Internal Medicine
DX: Z00.00 Encounter for general adult medical examination without abnormal findings (principal); M81.0 Age-related osteoporosis without current pathological fracture; E78.00 Pure hypercholesterolemia, unspecified
CPT/HCPCS: 36415; 80053; 80061; 82306; 85025

== ENCOUNTER 2024-11-03 11:46 | Emergency (ER) | payer MEDICARE, OTHER, SELFPAY ==
--- NOTE | ~2024-11-03 | CT_ITS ---
CLINICAL HISTORY: mid abdominal pain, fever. CT abdomen and pelvis with contrast Comparison: None provided Findings: Small pericardial effusion. No consolidation or pleural effusion. There are a couple of small kidney cysts. Remaining abdominal organs are unremarkable. There are no calcified gallstones. There is colonic diverticulosis without diverticulitis. There is no bowel edema or dilatation. Small to moderate pelvic free fluid. Prominent periuterine vasculature. Unremarkable urinary bladder and bilateral adnexa. Likely visualization of a normal appendix. No secondary findings to suggest appendicitis. Prior open reduction internal fixation of the right proximal femur. No acute fracture. IMPRESSION: 1. Small to moderate pelvic free fluid. 2. Prominent periuterine vasculature which can be associated with pelvic congestion syndrome. 3. There is colonic diverticulosis without diverticulitis. This document has been electronically signed by: Ninfa Medley MD on 11/03/2024 15:40:27
[2024-11-03 12:28] VITALS: BP 135/77; PULSE 80; RESP 16; TEMP 36.4; BMI 37.7
--- NOTE | 2024-11-03 12:31 | ED.NAVMDI ---
HPI - Nausea/Vomiting/Diarrhea General Chief complaint: Nausea/Vomiting/Diarrhea Stated complaint: Diarrhea abd pain sent from urgent care Time Seen by Provider: 11/03/24 12:14 Source: patient Mode of arrival: ambulatory Limitations: no limitations History of Present Illness ED Provider: DR. Pulliam HPI Narrative: 74-year-old female came in for evaluation of 3 days of nausea, vomiting, nonbloody watery diarrhea, and mid abdominal discomfort, decreased p.o. intake, persistent vomiting of the solid food able to keep liquids. +Subjective fever, no chills, no recent travel, no recent use of antibiotic, no exposure to a sick contacts, no suspicion of eating bad food recently. No history of intra-abdominal surgery. +passing flatus, no dysuria, no frequency urination, no vaginal bleed or discharge. Related Data Home Medications ?Medication ?Instructions ?Recorded ?Confirmed trazodone 100 mg tablet 100 mg PO BEDTIME 12/18/22 12/18/22 Previous Rx's ?Medication ?Instructions ?Recorded omeprazole 40 mg capsule,delayed 40 mg PO DAILY #14 caps 11/03/24 release ondansetron 4 mg disintegrating 4 mg PO Q8H PRN nausea and 11/03/24 tablet vomiting #5 tabs Allergies Allergy/AdvReac Type Severity Reaction Status Date / Time No Known Allergies (No Known Allergy Verified 11/03/24 12:29 Allergies*) Review of Systems Review of Systems: all other systems are reviewed and are negative Constitutional: Reports as per HPI and Reports no additional constitutional complaints Eyes: Reports as per HPI and Reports no additional eye complaints Reports system reviewed and no additional complaints, except as documented Cardiovascular: Reports as per HPI and Reports no additional cardiovascular complaints Respiratory: Reports as per HPI and Reports no additional respiratory complaints Gastrointestinal: Reports as per HPI and Reports no additional gastrointestinal complaints Genitourinary: Reports no additional female genitourinary complaints Musculoskeletal: Reports no additional musculoskeletal complaints Skin/Breast: Reports system reviewed and no additional complaints, except as docu Psychiatric: Reports no additional psychiatric complaints Endocrine: Reports no additional endocrine complaints Hematologic/Lymphatic: Reports no additional hematologic/lymphatic complaints Allergic/Immunologic: Reports no additional allergic/immunologic complaints Reports system reviewed and no additional complaints, except as documented and Reports Abnormal speech present [facility] Past Medical History Medical History History of femur fracture Insomnia Surgical History History of colonoscopy Social History Social History Patient Tobacco Use Status: Never used Tobacco Advance Directives: No Advance Directives Information Provided: Yes Physical Exam Vital Signs: Vital Signs: Last Vital Signs Temp 97.7 F 11/03/24 15:13 Pulse 82 11/03/24 15:13 Resp 19 11/03/24 15:13 BP 132/76 11/03/24 15:13 Pulse Ox 97 11/03/24 15:13 O2 Del Method Room Air 11/03/24 15:13 BMI result Body Mass Index 37.7 Vital signs have been reviewed and appear to be correct. Blood pressure elevated. Heart rate normal. Respiratory rate normal. Temperature normal. Oxygen saturation normal. Appearance: Alert. Oriented X3. No acute distress. Head: Normal external exam. Normocephalic. Atraumatic. No Warren signs noted. No raccoon eyes noted Eyes: PERRLA. EOMI. Conjunctiva and sclera normal. Eyelids normal. ENT: TM's Normal. Pharynx normal. Uvula midline. Moist mucous membranes. No trismus noted. No drooling noted. No muffled voice noted. Neck: Normal inspection. Neck supple. FROM. No adenopathy. Thyroid Normal. No meningeal signs. No neck mass noted. CVS: Normal heart rate and rhythm. Heart sound normal. No murmurs noted. Pulses normal throughout. Respiratory: No respiratory distress. Painless inspiration. Breath sounds normal. No wheezes/rales/rhonchi noted. Chest nontender. No accessory muscle usage noted or decreased air movement noted. Abdomen: Soft, mid abdominal tenderness, no guarding, no rebound tenderness.Bowel sounds normal in all 4 quadrants. No distention noted. No organomegaly noted. No visible injury noted. Back: No CVA tenderness. Full range of motion noted. Skin: Skin warm and dry. Normal skin color. Normal skin turgor. No rashes/lesions/lacerations noted. Extremities: No lower extremity edema. Extremities exhibit normal range of motion. Extremities nontender. Neuro: Oriented X 3. Cranial nerve exam: II-XII are grossly intact No motor deficit. No sensory deficit. Reflexes normal. Course Reevaluation(s) Reevaluation #1: Unremarkable labs, CT is describing possible pelvic congestion patient was instructed to follow-up with her OBGYN, able to tolerate p.o. intake. Will discharge to follow-up with PCP , and OBGYN, patient declined history of pelvic pain or vaginal discharge. Will prescribe Prilosec and Zofran PRN. Time: 16:01 Medications Administered Discontinued Medications Generic Name Dose Route Start Last Admin Trade Name Freq PRN Reason Stop Dose Admin Al Hydroxide/Mg Hydroxide 30 ml 11/03/24 12:28 11/03/24 13:23 Magnesium Hydrox/Alum Hydrox 30 Ml Oral.Susp PO 11/03/24 12:29 30 ml ONCE ONE Administration Famotidine 20 mg 11/03/24 12:28 11/03/24 12:49 Famotidine/Pf 20 Mg/2 Ml Vial IVPUSH 11/03/24 12:29 20 mg ONCE ONE Administration Iohexol 100 ml 11/03/24 13:44 11/03/24 13:44 Iohexol 350 Mg/Ml 100 Ml Infus..Btl IV 11/03/24 13:45 85 ml ONCE ONE Administration Ketorolac Tromethamine 15 mg 11/03/24 12:28 11/03/24 12:49 Ketorolac Tromethamine 15 Mg/Ml Vial IVPUSH 11/03/24 12:29 15 mg ONCE ONE Administration Loperamide HCl 2 mg 11/03/24 12:28 11/03/24 13:23 Loperamide Hcl 2 Mg Capsule PO 11/03/24 12:29 2 mg ONCE ONE Administration Ondansetron HCl 4 mg 11/03/24 12:28 11/03/24 12:49 Ondansetron Hcl 4 Mg/2 Ml Vial IVPUSH 11/03/24 12:29 4 mg ONCE ONE Administration Medical Decision Making Differential Diagnosis Differential Diagnoses: The differential diagnosis associated with the presentation includes ( Colitis, diverticulitis, pancreatitis, electrolyte derangement, severe anemia.) Admission/Observation Consideration of admission/observation: Escalation of care including admission/observation considered Lab Data MDM Lab Attestation statement: I reviewed the patient's lab results. 11/03/24 12:42 11/03/24 12:42 Labs: Lab Results 11/03/24 Range/Units 12:42 WBC 4.3 L (4.8-10.8) X10*3/uL RBC 4.76 (4.20-5.50) X10*6/uL Hgb 14.4 (12.0-16.0) g/dl Hct 42.3 (37.0-47.0) % MCV 88.9 (80.0-98.0) fL MCH 30.3 (27.0-33.0) pg MCHC 34.0 (31.0-35.0) g/dl RDW 13.2 (11.0-16.0) % Plt Count 191 (160-400) X10*3/uL MPV 9.4 (9.4-12.3) fL Immature Gran % (Auto) 0.5 H (0.0-0.4) % Neut % (Auto) 67.3 (45-73) % Lymph % (Auto) 14.7 L (20-40) % [place] % (Auto) 16.1 H (2-11) % Eos % (Auto) 0.7 (0-4) % Baso % (Auto) 0.7 (0-2) % Lymph # (Auto) 0.6 L (1.2-4.9) X10*3/uL [place] # (Auto) 0.7 (0.1-1.2) X10*3/uL Eos # (Auto) 0.0 (0.0-0.4) X10*3/uL Baso # (Auto) 0.0 (0.0-0.2) X10*3/uL Abs Immat Gran (auto) 0.02 (0.00-0.03) X10*3/uL Absolute Neuts (auto) 2.9 (2.0-8.3) x10*3/uL Absolute Nucleated RBC 0.000 (0.0-0.012) X10*3/uL Nucleated RBC % (auto) 0.0 (0.0-0.2) /100WBC Sodium 141 (135-145) mmol/L Potassium 4.0 (3.3-5.1) mmol/L Chloride 105 (96-108) mmol/L Carbon Dioxide 27 (22-29) mmol/L Anion Gap 13 (12-20) BUN 12 (9-16) mg/dL Creatinine 0.60 (0.5-1.4) mg/dL Estim Creat Clear Calc 92.3 Estimated GFR > 60 Random Glucose 82 (60-115) mg/dL Calcium 9.2 (8.4-10.2) mg/dL Phosphorus 3.3 (2.7-4.5) mg/dL Magnesium 1.8 (1.6-2.6) mg/dL Total Bilirubin 0.4 (0.0-1.0) mg/dL Direct Bilirubin 0.2 (0.0-0.5) mg/dL AST 41 H (5-31) U/L ALT 26 (0-31) U/L Alkaline Phosphatase 54 (39-117) U/L Total Protein 6.5 (6.5-8.0) g/dL Albumin 4.2 (3.5-5.0) g/dL Lipase 17 (8-78) U/L Independent Interpretation I performed an independent interpretation of an: CT Scan ( Abdomen pelvis:1. Small to moderate pelvic free fluid. 2. Prominent periuterine vasculature which can be associated with pelvic congestion syndrome. 3. There is colonic diverticulosis without diverticulitis.) Radiology Impression Discussion of test interpretation with radiology: I have reviewed the radiologist's reading. Discharge Plan Discharge Clinical Impression: Gastroenteritis, Pelvic congestion Patient Disposition: Home, Self-Care Instructions: Gastroenteritis (ED) Additional Instructions: follow-up with your primary doctor. Recommend to be evaluated by mentally impaired teacher as an outpatient. Contact your OBGYN for fighting on the CT of pelvic congestion. Prescriptions: New omeprazole 40 mg capsule,delayed release(DR/EC) 40 mg PO DAILY Qty: 14 0RF ondansetron 4 mg tablet,disintegrating 4 mg PO Q8H PRN (Reason: nausea and vomiting) Qty: 5 0RF No Action trazodone 100 mg tablet 100 mg PO BEDTIME Print Language: Zambian
--- OUTSIDE RECORDS SUMMARY | 2024-11-03 12:42 | XMS_ITS | Patient Health Record ---
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 Name Role Phone Kofi Blake MD Primary Care Provider Shaq Carl Unavailable [phone] Allergies No Known Allergies Reason For Referral [...] Problem Status W/U Status Risk Notes Problem 313002968 Encounter for screening for malignant neoplasm of colon (Z12.11) Active confirmed Problem Diverticulosis o f large intestine without perforation or abscess without bleeding (K57.30) Active confirmed Problem 929438463 Family history o f colonic polyps (Z83.71) Active confirmed Problem 167064965 Preprocedural examination (Z01.818) Active confirmed Problem 426151911 Family history o f colon cancer (Z80.0) Active confirmed Problem 582272327 Screening for co alberto cancer (Z12.11) Active confirmed Plan Of Treatment Future Test Test Name Order Date COLONOSCOPY 06/19/2017 COLONOSCOPY 09/27/2022 Insurance Providers Payer Name Payer Address Payer Phone Subscriber Number Group Number Insured Name Patient Relationship to Insured Coverage Start Date Coverage End Date MEDICARE OF [place] [address] [place] [address] [id number] KARMEN GUSTAFSON Self - patient is the insured [facility] [address] [place] [address] [id number] KARMEN GUSTAFSON Self - patient is the insured Medical (General) History Medical History History ICD Code Denies [place],DM,CVA,Lung disease,renal dise ase Negative colonoscopy in 03/2007 and 8 Surgical History Surgery Date(Month/Year) Fractured femur surgery-- right
--- OUTSIDE RECORDS SUMMARY | 2024-11-03 12:42 | XMS_ITS | Clinical Summary ---
Author Organization [facility] Address [address] [facility] [address] [place] [id number] Phone Care Team Providers Care Metaphysician Name Role Phone Kofi Blake MD Primary Care Provider [phone] Sonya Walter MD Unavailable Kofi Blake MD Unavailable [phone] Allergies No known active allergies Medications turmeric-turmer ic root extract 450-50 mg Cap Take 1 capsule by mouth. Active cholecalciferol (VITAMIN D3) 1,000 unit tablet 2 tablets daily Active calcium citrate (CALCITRATE) 950 mg (200 mg elemental) tabletIndicatio ns:osteoporosis Take 2 tablets by mouth daily. Indications: osteoporosis, a condition of weak bones Active traZODone (DESYREL) 100 MG tabletIndicatio ns:Insomnia TAKE 1 TABLET BY MOUTH EVERYDAY AT BEDTIME 90 tablet 3 5 Active Active Problems Problem Noted Date Diagnosed Date Insomnia 08/26/2018 Family history of colon cancer 2017 Hyperlipidemia 2017 Age-related osteoporosis wit hobindu current pathological fracture 2017 Assessment & Plan (02/15/2024 12:35 PM EST): 73 yo woman w/ osteoporosis on bone density. She is s/p fracture of femur after fall d/t getting tangled up in leash ~ 15 yrs ago. She is s/p course of alendronate probably > 10 yrs ago. She has had no recent falls or fractures. She is getting a good amount of calcium in via diet and/or supplement. She is seeing dentist regularly. Her recent bone density was stable. Using FRAX (which is designed for use in treatment naive pts), her 10 yr risk of hip fx is 5.9% & risk of any osteoporotic fracture is 20%. I would favor a repeat course of an antiresorptive to lower fracture risk. She prefers to monitor for now. Encouraged her to continue to work on optimizing calcium & D, weight-bearing exercises & continuing to avoid falls. Would repeat bone density in 2 yr. To call in the meantime if she sustains any fragility fractures. Encounters Date Type Department Care Team Description 09/29/2024 Telephone [facility] [address] [place] [address] Karie Sanchez RN Results 09/25/2024 Refill [facility] [address] [place] [address] Kofi Blake MD Medication Refill 08/20/2024 Orders Only [facility] [address] [place] [address] ProviderOli MD Age-related osteoporosis without current pathological fracture; Pure hypercholesterolemia; Routine general medical examination at a health care facility 08/04/2024 10:00 AM EDT Office Visit [facility] [address] [place] [address] Kofi Blake MD Routine general medical examination at a health care facility (Primary Dx); Pure hypercholesterolemia; Age-related osteoporosis without current pathological fracture 08/04/2024 Orders Only [facility] [address] [place] [address] ProviderOli MD from Last 3 Months Immunizations Immunization Administration Dates Next Due COVID-19 (Pre) Rob Vaccine, [id number], P F 06/09/2020 COVID-19 (Pre) Moderna Vaccine, mRNA, PF 0 04/04/2021 Family History Medical History Relation Comments Heart disease Father Cancer Mother Cancer Sibling Breast cancer Sister Osteoporosis Sister no fracture, on alendronate Hip fracture Neg Hx Relation Status Comments Father Mother Sibling Alive Sister Alive Social History Tobacco Use Types Packs/Day Years Used Date Smoking Tobacco: Former Cigarettes 0.5 3 1 971 - 1974 Smokeless Tobacco: Never Tobacco Cessation:Counseling Given: Not Answered Comments:quit 40 years ago Alcohol Use Standard Drinks/Week Comments Yes 7 (1 standard drink = 0.6 oz pur e alcohol) Education Answer Date Recorded Are you interested in more education? Not on tarah e 06/30/2022 Are you concerned about learning? Not on file 06/30/2022 No 06/30/2022 No 06/30/2022 Digital Access Answer Date Recorded No 07/29/2022 No 07/29/2022 Reliable internet access at home? Not on file 07/29/2022 Device with a working camera? Not on file Intimate Partner Violence Answer Date R ecorded Denied Basic Needs Not on file 07/28/2024 In the past 12 months have y ou been in a relationship with a person who hurts, threatens, or tries to control you? No 07/28/2024 Worried food would run out Not on file 07/28 In the past 12 months have y ou been in a relationship with a person who hurts, threatens, or tries to control you? No 07/28/2024 Comments No Sex and Gender Information Value Date Recorded Sex Assigned at Female 07/14/2021 7:11 PM EDT Legal Sex Female 10:36 PM EDT Gender Identity Female 07/14/2021 7:11 PM EDT Sexual Orientation Straight 07/14/2021 7: 11 PM EDT Last Filed Vital Signs Vital Sign Reading Time Taken Comments Blood Pressure 94/50 08/04/2024 9:53 AM EDT Pulse 54 08/04/2024 9:53 AM EDT Temperature 36.4 C (97.6 F) 08/04/2024 9:53 AM EDT Respiratory Rate 16 08/04/2024 9:53 AM EDT Oxygen Saturation 98% 08/04/2024 9:53 AM EDT Inhaled Oxygen Concentration - - Weight 46.6 kg (102 lb 12.8 oz) 08/04/2024 9:53 AM EDT Height 159.2 cm (5' 2.68 ) 08/04/2024 9:53 AM ED T Body Mass Index 18.4 08/04/2024 9:53 AM EDT Plan of Treatment Upcoming Encounters Date Type Department Care Team (Late st Contact Info) Description 08/05/2025 9:30 AM EDT Office Visit [facility] [address] [place] [address] Kofi Blake MD [address] [place] [address] [email or web address] Health Maintenance Due Date Last Done Comments Adult Td,Tdap Booster 1950 HEPATITIS C SCREENING 1969 COLOGUARD 02/20/1996 FIT TEST 02/20/1996 FOBT 02/20/1996 SIGMOIDOSCOPY 02/20/1996 VIRTUAL COLONOSCOPY 02/20/1996 PNEUMOCOCCAL VACCINES (50+ years) (1 of 1 - PCV) 2001 ZOSTER VACCINES (1 of 2) 2001 COVID-19 VACCINE ( - season) 2023 01/12/2022, 04/04/2021, 06/09/2020 DEPRESSION SCREENING 08/04/2025 08/04/2024 RSV VACCINE (1 - 1-dose 75+ series) 2026 MAMMOGRAM 07/21/2026 07/21/2024, 07/03, 07/16/2023, Additional history exists COLONOSCOPY 07/11/2027 07/10/2017, 03/25/2007 COLORECTAL CANCER SCREENING 07/11/2027 LIPID PANEL 08/19/2029 08/19/2024, 07/0 11/2023, 04/05/2022, Additional history exists OSTEOPOROSIS SCREENING INITIAL (ONE-TIME) Completed 02/15/2024, 01/16/2024, 01/16/2024, Additional history exists SMOKING STATUS SCREENING (Once After 26 Yrs) Completed 08/04/2024 HEPATITIS A VACCINES Aged Out No long er eligible based on patient's age to complete this topic HIB VACCINES Aged Out No longer eligi ble based on patient's age to complete this topic MENINGOCOCCAL VACCINES (ACWY) Aged Out No longer eligible based on patient's age to complete this topic MENINGOCOCCAL VACCINES (B) Aged Out N o longer eligible based on patient's age to complete this topic Medical Devices Not on file Procedures Procedure Name Priority Date/Time Associated Diagnosis Comments COMPREHENSIVE METABOLIC PANEL Routine 08/20/2024 11:14 AM EDT LIPID PANEL Routine 08/20/2024 11:14 AM EDT CBC Routine 08/19/2024 2:20 PM EDT Pure hypercholesterolemia Age-related osteoporosis without current pathological fracture Routine general medical examination at a health care facility 25-OH VITAMIN D Routine 08/19/2024 2:20 PM EDT Age-related osteoporosis without current pathological fracture COMPREHENSIVE METABOLIC PANEL Routine 08/19/2024 Pure hypercholesterolemia Age-related osteoporosis without current pathological fracture Routine general medical examination at a health care facility LIPID PANEL Routine 08/19/2024 Pure hypercholesterolemia Routine general medical examination at a health care facility HM MAMMOGRAPHY Routine 07/21/2024 8:45 AM EDT BD DXA MONITORING Routine 02/15/2024 12: 36 PM EST Age-related osteoporosis without current pathological fracture HM COLONOSCOPY FOR RESULT ENTRY ONLY Routine 07/10/2017 from Last 3 Months or Most Recently Relevant to Health Maintenance Results * Comprehensive metabolic panel (08/20/2024 11:14 AM EDT) Only the most recent of2 resultswithin the time period is included. Historical Provider LAB BLOOD ORDERABLES Marivel l Result * Lipid panel (08/20/2024 11:14 AM EDT) Only the most recent of2 resultswithin the time period is included. Historical Provider LAB BLOOD ORDERABLES Marivel l Result * CBC (08/19/2024 2:20 PM EDT) Blood Kofi Blake MD LAB BLOOD ORDERABLES Final Re sult EXTERNAL NON-INTERFACED REF LAB * 25-OH vitamin D (08/19/2024 2:20 PM EDT) Blood us Kofi Blake MD LAB BLOOD ORDERABLES Final Re sult Performing Organization Address [facility] Co de Phone Number EXTERNAL NON-INTERFACED REF LAB * HM MAMMOGRAPHY FOR RESULT ENTRY ONLY (07/21/2024 8:45 AM EDT) Historical Provider HEALTH MAINTENANCE Edited Result - Final Performing Organization Address [facility] Co de Phone Number EXTERNAL NON-INTERFACED REF LAB * OUTSIDE BONE DENSITY SCREENING (01/16/2024) [facility] BONE DENSITY SCREENING - EXTERNAL osteoporosis EXTERNAL NON-INTERFACE D REF LAB Historical Provider HEALTH MAINTENANCE Final Result Performing Organization Address [facility] Co de Phone Number EXTERNAL NON-INTERFACED REF LAB * HM COLONOSCOPY FOR RESULT ENTRY ONLY (07/10/2017) Historical Provider HEALTH MAINTENANCE Edited Result - Final from Last 3 Months or Most Recently Relevant to Health Maintenance Insurance MED[place]ARE [place] & [place] [id number] [facility] MEDICARE SUPPLEMENT MEDICARE PART A & B [facility] MEDICARE SUPPLEMENT MEDICARE PART A & B [employer] MED[employer] SUPPLEMENT MEDICARE PART A & B [employer] MEDICARE SUPPLEMENT MEDICARE PART A & B [facility] MEDICARE SUPPLEMENT MEDICARE PART A & B [employer] MEDICARE SUPPLEMENT MEDICARE PART A & B [employer] MEDICARE SUPPLEMENT MEDICARE PART A & B [employer] MEDICARE SUPPLEMENT MEDICARE PART A & B [employer] MEDICARE SUPPLEMENT Care Teams Metaphysician Relationship Specialty Start Date End Date Kofi Blake MD [address] [place] [address] PCP - General 12/21/16 Sonya Walter MD [address] [place] [id number] Endocrinology 01/04/21 Kofi Blake MD [address] [place] [address] Insurance Assigned Provider 06/09/23 Additional Source Comments The information contained in this document represents components of the legal health record. It is not the complete legal health record.[facility]
--- OUTSIDE RECORDS SUMMARY | 2024-11-03 12:43 | XMS_ITS | Patient Health Record ---
Author Organization [facility] Address [address] [place] [address] Care Team Providers Care Purchasing/Receiving Name Role Phone Kofi Blake MD Primary Care [facility] [phone] Reason For Referral No Information Medications Medication SIG (Take, Route, Fr equency, Duration) Notes Start Date End Date Status Gabapentin 300 MG 1 capsule Orally Onc e a day hs; Duration: 10 days 02/18/2018 Active Ibuprofen 600 MG 1 tablet with food o r milk as needed Orally Three times a day; Duration: 30 days 02/18/2018 Active traZODone HCl 100 MG TAKE 1 TABLET BY MO [facility] AT BEDTIME Oral; Duration: 90 Activ e Social History Tobacco Use: Social History Observation Description Date Details (start date - stop date) Former Smoker NA - NA Tobacco Use/Smoking Question Answer Notes Are you a: former smoker When did you stop smoking? 47 yrs ago Additional Findings: Tobacco Non-User Current no n-smoker Alcohol Screen Question Answer Notes Did you have a drink contain ing alcohol in the past year? Yes How often did you have a dri nk containing alcohol in the past year? Monthly or less (1 point) Points 1 Interpretation Negative Tobacco use other than smoking: Question Answer Notes Are you an other tobacco user? No Problems Problem Type SNOMED Code ICD Code Onset Dates Problem Status W/U Status Risk Notes Problem Localized, primary osteoarthritis of the ankle and/or foot (641175995) Primary osteoarthrit is, right ankle and foot (M19.071) Active confirmed Problem Acquired hammer toe of right foot (4409263872922560) Other hammer toe(s) (acquired), right foot (M20.41) Active confirmed Plan Of Treatment Pending Test Test Name Order Date X ray : Foot, right 2V 11/13/2016 X ray : Foot, right 2V 02/18/2018 X ray : Foot, right 2V 03/27/2018 X ray : Foot, right 2V 04/29/2018 X ray : Foot, right 2V 07/08/2018 X ray : Foot, right 3V 03/11/2018 Insurance Providers Payer Name Payer Address Payer Phone Subscriber Number Group Number Insured Name Patient Relationship to Insured Coverage Start Date Coverage End Date Medicare National [employer] [address] [place] [address] [id number] Sally Saldana Self - patient is the insured [employer] ([facility]) [address] [place] [address] [id number] Sally Saldana Self - patient is the insured Medical (General) History Medical History History ICD Code Back,Hip,and Knee pain Joint implants/screws Mumps Surgical History Surgery Date(Month/Year) femur surgery, cracked 2 screws RT side 1996 HT R4,5 Condylectomy R5 03/07/2018
[2024-11-03 12:48] LABS: MANUAL DIFF FLAG NO
[2024-11-03 12:49] LABS: Hematocrit 42.3 % (37.0-47.0); Hemoglobin 14.4 g/dl (12.0-16.0); Imm Gran Abs Auto 0.02 X10*3/uL (0.00-0.03); Imm Gran Pct Auto 0.5 % (0.0-0.4); Lymphocytes Absolute Auto 0.6 X10*3/uL (1.2-4.9); Mean Corpuscular HGB Conc 34.0 g/dl (31.0-35.0); Mean Corpuscular Hemoglobin 30.3 pg (27.0-33.0); Mean Corpuscular Volume 88.9 fL (80.0-98.0); NRBC Abs Auto 0.000 X10*3/uL (0.0-0.012); NRBC Pct Auto 0.0 /100WBC (0.0-0.2); Platelet Count 191 X10*3/uL (160-400); Red Blood Count 4.76 X10*6/uL (4.20-5.50); White Blood Count 4.3 X10*3/uL (4.8-10.8)
[2024-11-03 13:04] LABS: Alanine Aminotransferase 26 U/L (0-31); Albumin Level 4.2 g/dL (3.5-5.0); Alkaline Phosphatase 54 U/L (39-117); Anion Gap 13 (12-20); Aspartate Amino Transferase 41 U/L (5-31); Blood Urea Nitrogen 12 mg/dL (9-16); Calcium 9.2 mg/dL (8.4-10.2); Carbon Dioxide 27 mmol/L (22-29); Chloride 105 mmol/L (96-108); Creatinine Clr Calc Pharmacy 92.3; Estimated Glomerular Filt Rate > 60; Lipase 17 U/L (8-78); Magnesium 1.8 mg/dL (1.6-2.6); Potassium 4.0 mmol/L (3.3-5.1); Sodium 141 mmol/L (135-145); Total Protein 6.5 g/dL (6.5-8.0)
[2024-11-03] MEDS: Magnesium Hydrox/Alum Hydrox 30 ML ORAL.SUSP PO (13:23)
[2024-11-03] MEDS: iohexoL 350 MG/ML 100 ML INFUS..BTL IV (13:44)
[2024-11-03 15:13] VITALS: BP 132/76; PULSE 82; RESP 19; TEMP 36.5; O2SAT 97
[2024-11-03 16:31] VITALS: BP 132/76; PULSE 82; RESP 19; TEMP 36.5; O2SAT 97
== END 2024-11-03 16:31 | disposition home or self-care (01) ==
PROVIDERS: Emergency Provider Emergency Medicine; PCP Internal Medicine
DX: K52.9 Noninfective gastroenteritis and colitis, unspecified (principal); N94.89 Other specified conditions associated with female genital organs and menstrual cycle; R10.9 Unspecified abdominal pain; R50.9 Fever, unspecified; R11.2 Nausea with vomiting, unspecified
CPT/HCPCS: 36415; 74177; 80048; 80076; 83690; 83735; 84100; 85025; 96374; 96375; 99283; 99284; J1308; J1885; J2405; Q9967

== ENCOUNTER → 2024-11-03 12:28 | Outpatient (BNV) | payer MEDICARE, OTHER, SELFPAY | PROVIDERS: Emergency Provider Emergency Medicine; PCP Internal Medicine; Visit Provider Radiology Diagnostic Radiology | DX: R18.8 Other ascites (principal) | CPT/HCPCS: 74177 ==